=== PATIENT | female | born 1935 | race Caucasian/White ===

== ENCOUNTER 2016-11-20 07:34 | Emergency (ER) | payer MEDICARE ==
[2016-11-20 07:09] LABS: BASOPHIL 0.3 % (0-2); EOSINOPHIL 3.8 % (0-7); HCT 28.2 % (37.0-47.0); HGB 8.4 g/dl (12.5-16.0); LYMPHOCYTE 13.7 % (15-48); MCH 29.3 pg (25.0-31.0); MCHC 29.8 g/dL (32.0-36.0); MCV 98.3 fL (78.0-100.0); MONOCYTE 5.2 % (0-12); MPV 10.8 fL (6.0-9.5); PLT 182 K/uL (150-400); RBC 2.87 M/uL (4.20-5.40); RDW 16.9 % (11.5-14.0); WBC 7.1 K/uL (4.0-10.5)
[2016-11-20 07:21] LABS: ALBUMIN 3.1 g/dL (3.4-4.8); BILIRUBIN - TOTAL 0.3 mg/dL (0.1-1.0); CREATININE 1.1 mg/dL (0.5-1.0); GLOBULIN (CALCULATION) 2.3 g/dL (2.2-4.2); POTASSIUM 4.3 mmol/L (3.5-5.1); TOTAL PROTEIN 5.4 g/dL (6.4-8.3)
[2016-11-20 07:58] LABS: BILIRUBIN NEGATIVE (NEGATIVE); BLOOD NEGATIVE Ery/uL (NEGATIVE); CLARITY CLEAR (CLEAR); COLOR YELLOW (YELLOW); GLUCOSE (U) NORMAL (NORMAL); KETONE (U) NEGATIVE (NEGATIVE); LEUKOCYTES NEGATIVE Leu/uL (NEGATIVE); NITRITE NEGATIVE (NEGATIVE); PROTEIN NEGATIVE (NEGATIVE); SPECIFIC GRAVITY 1.015 (1.001-1.030)
== END 2016-11-20 10:38 | disposition home or self-care (01) ==
LOC: FER 07:34
PROVIDERS: Internal Medicine
DX: I48.91 Unspecified atrial fibrillation (principal); I11.0 Hypertensive heart disease with heart failure; E78.5 Hyperlipidemia, unspecified; Z88.8 Allergy status to other drugs, medicaments and biological substances
CPT/HCPCS: 36415; 36600; 71010; 80053; 81003; 82803; 83605; 84484; 85025; 87040; 93005

== ENCOUNTER 2016-11-28 00:59 | Emergency (ER) | payer MEDICARE ==
[2016-11-28 01:29] LABS: BASOPHIL 0.3 % (0-2); EOSINOPHIL 6.2 % (0-7); HCT 28.4 % (37.0-47.0); HGB 8.6 g/dl (12.5-16.0); LYMPHOCYTE 21.6 % (15-48); MCH 29.8 pg (25.0-31.0); MCHC 30.3 g/dL (32.0-36.0); MCV 98.3 fL (78.0-100.0); MONOCYTE 6.7 % (0-12); MPV 10.4 fL (6.0-9.5); NEUTROPHIL 65.2 % (41-80); PLT 207 K/uL (150-400); RBC 2.89 M/uL (4.20-5.40); WBC 5.8 K/uL (4.0-10.5)
[2016-11-28 01:38] LABS: CKMB 1.29 ng/mL (0.97-4.94); TROPONIN T < 0.010 ng/mL
[2016-11-28 01:52] LABS: PRO-BNP 1860 pg/mL (0-450)
[2016-11-28 02:10] LABS: ALBUMIN 3.5 g/dL (3.4-4.8); BILIRUBIN - TOTAL 0.2 mg/dL (0.1-1.0); CREATININE 1.2 mg/dL (0.5-1.0); GLOBULIN (CALCULATION) 1.6 g/dL (2.2-4.2); POTASSIUM 3.9 mmol/L (3.5-5.1); TOTAL PROTEIN 5.1 g/dL (6.4-8.3)
[2016-11-28 02:24] LABS: BILIRUBIN 1+ mg/dL (NEGATIVE); BLOOD NEGATIVE Ery/uL (NEGATIVE); CLARITY CLEAR (CLEAR); COLOR YELLOW (YELLOW); GLUCOSE (U) NORMAL (NORMAL); KETONE (U) TRACE mg/dL (NEGATIVE); LEUKOCYTES NEGATIVE Leu/uL (NEGATIVE); NITRITE NEGATIVE (NEGATIVE); PROTEIN NEGATIVE (NEGATIVE); SPECIFIC GRAVITY 1.015 (1.001-1.030); UROBILINOGEN 0.2 mg/dL (0.2-1.0)
== END 2016-11-28 04:05 | disposition home or self-care (01) ==
LOC: FER 00:59
PROVIDERS: Emergency Medicine
DX: I50.9 Heart failure, unspecified (principal); D63.8 Anemia in other chronic diseases classified elsewhere; R55 Syncope and collapse; I48.91 Unspecified atrial fibrillation; J44.9 Chronic obstructive pulmonary disease, unspecified; Z88.8 Allergy status to other drugs, medicaments and biological substances
CPT/HCPCS: 36415; 36600; 71010; 80053; 81003; 82550; 82553; 82803; 83880; 84484; 85025; 87088; 93005; J1940

== ENCOUNTER 2016-12-15 19:50 | Emergency (ER) | payer MEDICARE ==
[2016-12-15 20:40] LABS: BILIRUBIN NEGATIVE (NEGATIVE); BLOOD NEGATIVE Ery/uL (NEGATIVE); CLARITY CLEAR (CLEAR); COLOR STRAW (YELLOW); GLUCOSE (U) NORMAL (NORMAL); KETONE (U) NEGATIVE (NEGATIVE); LEUKOCYTES TRACE Leu/uL (NEGATIVE); NITRITE NEGATIVE (NEGATIVE); PROTEIN NEGATIVE (NEGATIVE); UROBILINOGEN 0.2 mg/dL (0.2-1.0); pH 6.5 (5.0-9.0)
[2016-12-15 20:51] LABS: HCT 30.3 % (37.0-47.0); HGB 9.2 g/dl (12.5-16.0); MCH 28.8 pg (25.0-31.0); MCHC 30.4 g/dL (32.0-36.0); MCV 94.7 fL (78.0-100.0); PLT 197 K/uL (150-400); WBC 6.2 K/uL (4.0-10.5)
[2016-12-15 21:00] LABS: LACTIC ACID 1.5 mmol/L (0.5-2.2)
[2016-12-15 21:01] LABS: TROPONIN T < 0.010 ng/mL
[2016-12-15 21:02] LABS: CREATININE 1.1 mg/dL (0.5-1.0); POTASSIUM 4.2 mmol/L (3.5-5.1); PRO-BNP 819 pg/mL (0-450)
== END 2016-12-15 23:52 | disposition home or self-care (01) ==
LOC: FER 19:50
PROVIDERS: Emergency Medicine
DX: I95.9 Hypotension, unspecified (principal); R05 Cough; R60.0 Localized edema; I10 Essential (primary) hypertension; I48.91 Unspecified atrial fibrillation; E11.9 Type 2 diabetes mellitus without complications; E78.5 Hyperlipidemia, unspecified; J44.9 Chronic obstructive pulmonary disease, unspecified; D64.9 Anemia, unspecified; G20 Parkinson's disease; R82.90 Unspecified abnormal findings in urine; Z88.8 Allergy status to other drugs, medicaments and biological substances; Z99.81 Dependence on supplemental oxygen; Z85.3 Personal history of malignant neoplasm of breast
CPT/HCPCS: 36415; 71010; 71250; 80048; 81001; 83605; 83880; 84484; 87040; 87088; 93005; J1940